=== PATIENT | male | born 1945 | race Caucasian/White ===

== ENCOUNTER → 2016-12-15 | Day surgery (SDC) | payer MEDICARE, OTHER ==
[~2016-12-15] VITALS: Ht 180.3 cm; Wt 91.6 kg
[~2016-12-15] MED LIST: AMLO2.5T PO; ASPI-999 PO; ATOR10TA PO; FNST5T PO; HYDR-3876 PO; LIDOCAINE 1% INJ 20 ML (XYLOCAINE) VIAL ONE; LISI10TA2 PO; LISI40TA PO; LORA10TA72 PO; LOVA20TA2 PO; NITR100C44 PO; OMEP20TA2 PO; TERA5CAP10 PO
--- NOTE | 2016-12-16 03:55 | OPERATIVE REPORT ---
DATE OF SERVICE: 12/15/2016 PROCEDURE: Implantable loop recorder implantation. PERFORMING PHYSICIAN: Dr. Santhosh Mcclellan. REFERRING PHYSICIAN: Dr. Vishnu Hamlin. INDICATION: Possible atrial fibrillation. PREOPERATIVE DIAGNOSIS: Possible atrial fibrillation. POSTOPERATIVE DIAGNOSIS: Possible atrial fibrillation, status post implantation of a Biotronik loop recorder. INDICATIONS: The patient is a 71-year-old gentleman who has been referred by Dr. Granado. He has history of palpitations and an event monitor done for 2 weeks showed episodes of irregular narrow complex tachycardia as well as brief episode of wide complex tachycardia. These may be brief episodes of atrial fibrillation/atrial tachycardia. Correction surveillance of atrial fibrillation is recommended, therefore an implantable loop recorder was recommended. PROCEDURE DETAILS: The patient is a 71-year-old gentleman. Informed consent was taken. All the risks and complications were discussed at length. The patient was draped and prepped in the usual sterile fashion. Local anesthesia was with lidocaine which was given in the substernal area close to the fourth intercostal space. A Biotronik loop monitor was implanted according to the protocol. The incision site was closed with 4 interrupted 2-0 silk sutures. Steri-Strips and Dermabond was placed at the end of the procedure. There were no complications and the patient tolerated the procedure well. The device was interrogated which showed an R-wave of 1.56 millivolts. The device placed is a BioMonitor 2-AF, reference number [id number], serial number [id number]. ANESTHESIA: Local anesthesia with lidocaine. COMPLICATIONS: None. CONTRAST/FLUOROSCOPY: None. CONCLUSIONS: 1. Successful implantation of Biotronik loop monitor for [facility] surveillance of atrial fibrillation. 2. No complication and the patient tolerated the procedure well. Job ID: [id number] DocumentID: [id number] Dictated Date: 12/15/2016 13:02:05 Vice President Network Date: 12/16/2016 03:54:08 Dictated By: SANTHOSH MCCLELLAN MD
== END ==
LOC: CATH 09:36
PROVIDERS: ATTEND Internal Medicine Interventional Cardiology
DX: R00.2 Palpitations (principal); R00.0 Tachycardia, unspecified; I10 Essential (primary) hypertension; I25.10 Atherosclerotic heart disease of native coronary artery without angina pectoris
CPT/HCPCS: 33282

== ENCOUNTER → 2017-12-28 | Outpatient (CLI) | payer MEDICARE, OTHER ==
[~2017-12-28] MED LIST changes: +APIX5TAB; +DILT180C; -LIDOCAINE 1% INJ 20 ML (XYLOCAINE) VIAL ONE
--- NOTE | 2017-12-28 13:33 | Diagnostic Imaging Report ---
Indication: Right arm pain Findings: AP and lateral views of the right humerus show no fracture or dislocation. Impression: Negative right humerus. Dictated by: Dictated on workstation # [id number]
== END ==
LOC: RAD 08:58
DX: M79.601 Pain in right arm (principal)
CPT/HCPCS: 73060

== ENCOUNTER 2018-02-03 06:24 | Emergency (ER) | payer MEDICARE, OTHER ==
[~2018-02-03] VITALS: Ht 180.3 cm; Wt 90.7 kg
[~2018-02-03 06:24] MED LIST changes: -APIX5TAB; -DILT180C
--- OUTSIDE RECORDS SUMMARY | 2018-02-03 06:32 | XMS REPORT | Clinical Summary ---
Author Author [facility] Organization [facility] Address Unknown Phone Unavailable Care Team Providers Care Gang Worker Name Role Phone Carrington Perze MD Unavailable Elgin Balderas PA-C Unavailable Unverified, Unverified PCP Unavailable Source Comments Some departments are not documenting in the electronic medical record. If you do not see the information that you expected, contact Release of Information in the Health Information Management department at [phone] for further assistance in locating additional records.[facility] Allergies Active Allergy Reactions Severity Noted Date Comments Ether NAUSEA AND VOMITING 11/13/2012 Current Medications Prescription Sig. Disp. Refills Start End Date Status Date atorvastatin (LIPITOR) 10 Take 10 mg by mouth Active mg tablet daily. metoprolol XL (TOPROL XL) Take 100 mg by mouth Active 100 mg tablet daily. omeprazole DR(+) Take 20 mg by mouth Active (PRILOSEC) 20 mg capsule daily. Active Problems Problem Noted Date Prostate cancer (HCC) 09/03/2012 Overview: PSA (Jul 2012)=3.2 ng/mL on Finasteride. PNBx (09/03/2012): cT1c; [place] 3+3=6, 1/6 cores, 5%; Dr. Meyer. (B) NS RALP -- 01/03/2013; Dr. Perez: final pathology pT2aNx [place] 3+3=6, negative margins L ast Assessment & Plan: 68M with prostate cancer s/p RALP 12/2012, final pathology was pT2aNx [place] 3+3=6. He is doing great. -Incontinence is improving and only requiring 1 pad/day. Mr. Winkler will continue his kegel exercises. -He was able to achieve a small erection but is not interested in any further treatment at this time. -PSA was not drawn today. He would like to follow-up with Dr. Meyer from now on and has an appointment within the next month. Advised to have a PSA at that time. -RTC PRN Family History Medical History Relation Name Comments Cancer Mother Hypertension Mother Relation Name Status Comments Mother Social History Tobacco Use Types Packs/Day Years Used Date Never Smoker Smokeless Tobacco: Never Used Alcohol Use Drinks/Week oz/Week Comments No Sex Assigned at Date Recorded Not on file Last Filed Vital Signs Vital Sign Reading Time Taken Blood Pressure 167/93 04/09/2013 11:18 AM CDT Pulse 56 04/09/2013 11:18 AM CDT Temperature 36.6 C (97.9 F) 01/04/2013 8:13 AM CDT Respiratory Rate - - Oxygen Saturation 96% 01/04/2013 10:55 AM CDT Inhaled Oxygen - - Concentration Weight 93.4 kg (206 lb) 04/09/2013 11:18 AM CDT Height 180.3 cm (5' 11") 04/09/2013 11:18 AM CDT Body Mass Index 28.73 04/09/2013 11:18 AM CDT Plan of Treatment Health Maintenance Due Date Last Done Comments PHYSICAL (COMPREHENSIVE) 02[birth year]01/1952 EXAM PERTUSSIS VACCINE 02/01/1955 TETANUS VACCINE 02/01/1961 COLORECTAL CANCER 02/01/1994 SCREENING SHINGLES VACCINE 2004 PNEUMONIA (PCV13/PPSV23) 02/01/2009 VACCINES (1 of 2 - PCV13) INFLUENZA VACCINE 05/21/2018 Results Not on filefrom Last 3 Months
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
--- OUTSIDE RECORDS SUMMARY | 2018-02-03 06:32 | XMS REPORT ---
Author Author MOISES FLORES [facility] Address [address] [place] [address] Care Team Providers Care Buckram Sewer Name Role Phone FLORESVELMAA Unavailable PROBLEMS Type Condition ICD9-CM Code [id number] Code Onset Dates Condition Status SNOMED Code Problem DTAP TEST V06.1 Active ALLERGIES No Information ENCOUNTERS Encounter Location Date Diagnosis [place] [address] [address] May, Encounter for immunization [place] [address] [address] Jul, Encounter for immunization [place] [address] [address] Jun, Encounter for immunization [place] [address] [address] Oct, [place] [address] [address] [place] [id number] [place] [phone] Oct, IMMUNIZATIONS Vaccine Route Administration Date Status FLUARIX QUAD (3 AND UP) 2016 IM Intramuscular May 24, 2017 Administered PCV 13 IM Intramuscular May 24, 2017 Administered SOCIAL HISTORY Never Assessed REASON FOR VISIT Flu shot/ pneumonia-SELENE Day PLAN OF CARE VITAL SIGNS MEDICATIONS Unknown Medications RESULTS No Results PROCEDURES Procedure Date Ordered Result Body Site FLUARIX QUAD (3 & UP)-GSK-2015 May 24, 2017 PCV 13 May 24, 2017 IMMUNIZATION ADMIN, EACH ADD (please include units) May 24, 2017 SINGLE IMMUNIZATION ADMIN May 24, 2017 INSTRUCTIONS MEDICATIONS ADMINISTERED No Known Medications
[2018-02-03] MEDS ORDERED: APIX5TAB (06:37)
[2018-02-03] MEDS ORDERED: DILT180C (06:37)
[2018-02-03] MEDS ORDERED: FUROSEMIDE 40 MG/4 ML INJ (LASIX) IVP ONE (06:45)
--- NOTE | 2018-02-03 07:47 | ED General ---
General Chief Complaint: Cardiac/General Problems Stated Complaint: BLOOD PRESSURE HIGH Nursing Triage Note: HIGH BLOOD PRESSURE Nursing Sepsis Screen: No Definite Risk Source of Information: Patient Exam Limitations: No Limitations History of Present Illness Date Seen by Provider: Feb 03, 2018 Time Seen by Provider: 07:47 Initial Comments Took his blood pressure and was concerned it was 167/99. Being treated by Dr. Wood for his hypertension; On Cardizem. Has had an aortic valve replacement. Had some tingling in his hands with his elevated BP. Allergies and Home Medications Allergies Coded Allergies: ether (Unverified Allergy, Unknown, vomiting, 10/21/14) Home Medications Lovastatin 20 Mg Tablet, 20 MG PO HS Prescribed by: SARIAH CRUZ on 12/29/15 1040 Patient Home Medication List Home Medication List Reviewed: Yes Review of Systems Constitutional: No chills, No fever EENTM: no symptoms reported Respiratory: no symptoms reported Cardiovascular: No chest pain, No palpitations Gastrointestinal: No abdominal pain, No vomiting Genitourinary: no symptoms reported Musculoskeletal: No back pain Skin: no symptoms reported Psychiatric/Neurological: No Symptoms Reported Hematologic/Lymphatic: No Symptoms Reported Immunological/Allergic: no symptoms reported Past Nqblxae-Vkbinj-Pnkbpx Hx Past Med/Social Hx: Reviewed Nursing Past Med/Soc Hx Patient Social History Alcohol Use: Denies Use Recreational Drug Use: No Smoking Status: Never a Smoker 2nd Hand Smoke Exposure: No Recent Foreign Travel: No Contact w/Someone Who Travel: No Recent Infectious Disease Expo: No Recent Hopitalizations: No Immunizations Up To Date Tetanus Booster (TDap): Unknown Date of Influenza Vaccine: May 21, 2014 Seasonal Allergies Seasonal Allergies: No Past Medical History Surgeries: Yes (AVR) CABG, Prostatectomy, Tonsillectomy Respiratory: No Cardiac: Yes High Cholesterol, Hypertension Neurological: No Reproductive Disorders: No Genitourinary: Yes Prostate Problems Gastrointestinal: No Musculoskeletal: No Endocrine: No HEENT: No Cancer: Yes Melanoma Psychosocial: No Integumentary: No Blood Disorders: No Physical Exam Vital Signs Vital Signs - First Documented 02/03/18 06:30 Temp 97.7 Pulse 58 Resp 18 B/P (MAP) 179/101 (127) Pulse Ox 97 O2 Delivery Room Air Capillary Refill : Less Than 3 Seconds General Appearance: No Apparent Distress, WD/WN, Anxious HEENT: Normal ENT Inspection Neck: Normal Inspection Respiratory: Normal Breath Sounds Cardiovascular: Regular Rate, Rhythm Gastrointestinal: Normal Bowel Sounds Extremity: Normal Capillary Refill, Normal Inspection Neurologic/Psychiatric: Alert, Oriented x3, No Motor/Sensory Deficits, Normal Mood/Affect Skin: Normal Color, Warm/Dry Procedures/Interventions Suture Size: 5-0 Progress/Results/Core Measures Suspected Sepsis Recent Fever Within 48 Hours: No Infection Criteria Present: None New/Unexplained Altered Menta: No Sepsis Screen: No Definite Risk SIRS Temperature:97.7 Pulse: 58 Respiratory Rate: 18 Blood Pressure 179 /101 Mean: 127 Results/Orders My Orders Orders - JAYCE VILLAGOMEZ MD Iv Heplock-Insert (Order) (02/03/18 06:43) Furosemide Injection (Lasix Injection) (02/03/18 06:45) Medications Given in ED Current Medications Medications Dose Ordered Sig/Daniel Route Start Time Stop Time Status Last Admin Dose Admin Furosemide 20 mg ONCE ONCE IVP 02/03/18 06:45 02/03/18 06:46 DC 02/03/18 06:50 20 MG Vital Signs/I&O 02/03/18 06:30 Temp 97.7 Pulse 58 Resp 18 B/P (MAP) 179/101 (127) Pulse Ox 97 O2 Delivery Room Air Capillary Refill : Less Than 3 Seconds Blood Pressure Mean: 127 Progress Note : Time: 07:52 Progress Note Patient given 20 mg Lasix IV. After an hour the patient's BP was 140/85 and patient was ready to go home. Advised he follow up closely with Dr. Wood and continue his current BP meds as prescribed. Departure Impression Primary Impression: Hypertelorism disorder Disposition: Condition: Improved Departure-Patient Inst. Decision time for Depature: 07:55 Referrals: JOSE WOOD MD (PCP) Primary Care Physician Patient Instructions: High Blood Pressure (DC) Add. Discharge Instructions: Continue blood pressure meds as prescribed. Close follow up with Dr. Wood. Come back if any problems. All discharge instructions reviewed with patient and/or family. Voiced understanding. JAYCE VILLAGOMEZ MD Feb 03, 2018 07:47
[2018-02-03 08:02] VITALS: BP 143/85
== END 2018-02-03 08:02 | disposition home or self-care (01) ==
LOC: EDUNIT# 06:24 → ER 06:28
DX: Q75.2 Hypertelorism (principal); E78.00 Pure hypercholesterolemia, unspecified; I10 Essential (primary) hypertension; Z85.820 Personal history of malignant melanoma of skin; Z90.89 Acquired absence of other organs; Z95.5 Presence of coronary angioplasty implant and graft; Z90.79 Acquired absence of other genital organ(s); Z95.2 Presence of prosthetic heart valve; Z88.4 Allergy status to anesthetic agent
CPT/HCPCS: 96374

== ENCOUNTER → 2018-02-09 | Outpatient (CLI) | payer MEDICARE, OTHER ==
[~2018-02-09] MED LIST changes: +APIX5TAB; +DILT180C; +GADOBUTROL 10 MMOL/10 ML (GADAVIST) VIAL IV ONE
--- NOTE | 2018-02-09 15:17 | Diagnostic Imaging Report ---
PROCEDURE: MR imaging of the brain with and without contrast. TECHNIQUE: Multiplanar, multisequence MR imaging of the brain was performed with and without contrast. INDICATION: Memory difficulty. COMPARISON: No prior MRI brain study is available for comparison. FINDINGS: Ventricular size and sulcal pattern are appropriate for the patient's age. There is fairly extensive periventricular and subcortical white matter signal abnormalities noted, likely on the basis of chronic microvascular ischemia. No diffusion restriction is seen to suggest acute ischemia. The normal expected flow-voids within the carotid siphons are seen. No acute intra-axial or extra-axial hemorrhage is detected. The corpus callosum is unremarkable. The sella and parasellar structures are unremarkable. No abnormal enhancement is seen following contrast administration. IMPRESSION: Changes of chronic microvascular ischemia. MRI brain is otherwise unremarkable. No acute features detected. Dictated by: Dictated on workstation # [id number]
== END ==
LOC: RAD 11:27
DX: I67.82 Cerebral ischemia (principal)
CPT/HCPCS: 70553

== ENCOUNTER → 2018-04-24 | Outpatient (CLI) | payer MEDICARE, OTHER ==
[~2018-04-24] MED LIST changes: -GADOBUTROL 10 MMOL/10 ML (GADAVIST) VIAL IV ONE
== END ==
LOC: CARD 09:27
PROVIDERS: ATTEND Nurse Practitioner Family
DX: I08.1 Rheumatic disorders of both mitral and tricuspid valves (principal); Z95.2 Presence of prosthetic heart valve
CPT/HCPCS: 93306

== ENCOUNTER 2019-05-22 12:33 | Outpatient (RCR) | payer MEDICARE, OTHER | END 2019-07-04 10:33 | disposition home or self-care (01) | PROVIDERS: ATTEND Podiatrist | DX: M76.822 Posterior tibial tendinitis, left leg (principal); R29.898 Other symptoms and signs involving the musculoskeletal system ==

== ENCOUNTER → 2020-05-12 | Outpatient (CLI) | payer MEDICARE, OTHER ==
[~2020-05-12] MED LIST changes: -DILT180C; +DILT180C85
== END ==
LOC: CARD 10:37
PROVIDERS: ATTEND Nurse Practitioner Family
DX: I48.91 Unspecified atrial fibrillation (principal); I10 Essential (primary) hypertension; Q25.3 Supravalvular aortic stenosis; I77.89 Other specified disorders of arteries and arterioles
CPT/HCPCS: 93306

== ENCOUNTER 2021-08-06 05:26 | Outpatient (RCR) | payer MEDICARE, OTHER ==
[~2021-08-06] VITALS: Ht 180.3 cm; Wt 89.5 kg
[~2021-08-06 05:26] MED LIST changes: +DOXA1TAB2 PO; -LISI40TA PO; +LISI40TA9 PO; +MULT-593 PO; +OMEP-401 PO; +RIVA1.5C30 PO; +SERT-413 PO
== END 2021-08-06 11:48 | disposition home or self-care (01) ==
LOC: PREOP 05:26
PROVIDERS: ATTEND Surgery
DX: Z01.812 Encounter for preprocedural laboratory examination (principal); Z12.11 Encounter for screening for malignant neoplasm of colon; K21.9 Gastro-esophageal reflux disease without esophagitis; Z20.822 Contact with and (suspected) exposure to COVID-19; Z86.010 Personal history of colon polyps
CPT/HCPCS: 87635

== ENCOUNTER 2021-08-10 07:23 | Day surgery (SDC) | payer MEDICARE, OTHER ==
[2021-08-10] VITALS (7 sets, daily range): BP systolic 132–155; BP diastolic 70–100
[~2021-08-10] VITALS: Ht 180.3 cm; Wt 89.5 kg
[2021-08-10] MEDS ORDERED: MIDAZOLAM 2 MG/2 ML (VERSED) VIAL ONE (07:28)
[2021-08-10] MEDS ORDERED: PROPOFOL INJECTION 50 ML IV ONE ×2 (07:28→09:15)
[2021-08-10] MEDS ORDERED: LACTATED RINGERS 1,000 ML IV ONE (07:30)
[2021-08-10] MEDS ORDERED: LACTATED RINGERS 1,000 ML IV STA (07:39)
[2021-08-10] MEDS ORDERED: HURRICAINE EXT TUBE (BENZOCAINE) XX PRN (07:45)
--- NOTE | 2021-08-10 09:25 | Discharge Inst-Simple/Standard ---
Discharge Inst-Standard Patient Instructions/Follow Up Plan of Care/Instructions/FU: Chong 2 weeks. Hold eliquis 2 more days then restart. Activity as Tolerated: Yes Discharge Diet: Regular Diet CIARA SAENZ DO Aug 10, 2021 09:25
--- NOTE | 2021-08-10 09:33 | Progress Note-Post Operative ---
Post-Operative Progess Note Surgeon (s)/Lens Molder (s) Surgeon CIARA SAENZ DO Lens Molder: na Pre-Operative Diagnosis hx polyps, gerd Post-Operative Diagnosis small hiatal hernia, slight gastritis colon polyps, diverticulosis Procedure & Operative Findings Date of Procedure 08/10/21 Procedure Performed/Findings egd c biopsies colonoscopy c cold biopsies of cecal polyp (flat), snare polypectomy of hepatic flexure and hot bx polypectomy sigmoid colon. Anesthesia Type per management analyst Estimated Blood Loss Estimated blood loss (mL): none Specimens/Packing Specimens Removed antrum, body, ge , colon polyps. CIARA SAENZ DO Aug 10, 2021 09:33
--- NOTE | 2021-08-10 14:11 | OPERATIVE REPORT ---
DATE OF SERVICE: 08/10/2021 PREOPERATIVE DIAGNOSIS: History of colon polyps, gastrointestinal reflux disease. POSTOPERATIVE DIAGNOSES: Small hiatal hernia, slight gastritis, colon polyps, diverticulosis. PROCEDURE: EGD with biopsies, colonoscopy with cold biopsies of the cecal polyp, which was flat, snare polypectomy of hepatic flexure and hot biopsy polypectomy of sigmoid colon. SURGEON: Ciara Schwarz DO ANESTHESIA: Per RELATIONSHIP COUNSELOR. ESTIMATED BLOOD LOSS: None. COMPLICATIONS: None. INDICATIONS: The patient is a 76-year-old male with GERD and history of colon polyps. He understands risks and benefits of procedure and wishes to proceed. Consent was signed in the chart. DESCRIPTION OF PROCEDURE: The patient was taken to the endoscopy suite, placed in left lateral recumbent position. Timeout was performed. Scope was inserted in mouth, down the esophagus, stomach and into the duodenum without difficulty. There were no polyps, masses or ulcerations within the duodenum. Scope was slowly retracted back into the stomach where it was further insufflated. Slight gastritis appearance. Biopsy of the antrum and body were obtained. No polyps, masses or ulcerations. Scope was retroflexed noting a small hiatal hernia. Scope was returned to its normal position, slowly withdrawn to distal esophagus. Biopsy of the GE junction was obtained. No polyps, masses or ulcerations. Scope was slowly retracted back until completely removed. Digital rectal exam was performed noting no palpable polyps, masses or ulcerations. The scope was inserted in the rectum, advanced all the way to cecum with minimal difficulty. Prep was adequate with irrigation and suction. The cecum, small flat polyp through approximately a third of the cecum was present. Cold biopsies were obtained of this area. Scope was then slowly retracted back. At the hepatic flexure, small polyp was present, which snare polypectomy was performed and was obtained for specimen. Scope was then continuously retracted back. No polyps, masses or ulcerations within the transverse and descending colon. In the sigmoid colon, a moderate amount of diverticulosis present. Also, small polyp, which hot biopsy polypectomy was performed. Scope was then continuously retracted back into the rectum where it was also retroflexed noting no other pathology. Scope was returned to its normal position, slowly withdrawn until completely removed. The patient tolerated procedure well without any complications, taken to recovery room in stable condition. RECOMMENDATIONS: The patient will await biopsies on the upper GI and make further recommendations. On the colon, we would recommend due to a larger flat polyp, await biopsy results. We would consider doing right colon resection. Further recommendations pending results. The patient's age 76 with a likely repeat colonoscopy in 5 years depending upon pathology, but due to age. We would have to look at the benefits versus risk. Job ID: [id number] DocumentID: [id number] Dictated Date: 08/10/2021 09:33:30 Curing Press Operator Date: 08/10/2021 14:09:35 Dictated By: CIARA SCHWARZ DO
--- NOTE | 2021-08-10 14:51 | Anesthesia-General Post-Op ---
MAC Patient Condition Mental Status/LOC: Same as Preop Cardiovascular: Satisfactory Nausea/Vomiting: Absent Respiratory: Satisfactory Pain: Controlled Complications: Absent Post Op Complications Complications None Follow Up Care/Instructions Patient Instructions None needed. Anesthesiology Discharge Order Discharge Order Patient is doing well, no complaints, stable vital signs, no apparent adverse anesthesia problems. No complications reported per nursing. MAURO SHEN CRNA Aug 10, 2021 14:51
== END 2021-08-10 10:15 | disposition home or self-care (01) ==
LOC: ENDO 07:23
PROVIDERS: ATTEND Surgery
DX: Z12.11 Encounter for screening for malignant neoplasm of colon (principal); D12.0 Benign neoplasm of cecum; D12.3 Benign neoplasm of transverse colon; I25.10 Atherosclerotic heart disease of native coronary artery without angina pectoris; I10 Essential (primary) hypertension; K21.9 Gastro-esophageal reflux disease without esophagitis; K44.9 Diaphragmatic hernia without obstruction or gangrene; K57.30 Diverticulosis of large intestine without perforation or abscess without bleeding; Z79.899 Other long term (current) drug therapy; Z79.01 Long term (current) use of anticoagulants

== ENCOUNTER 2021-09-02 05:32 | Outpatient (CLI) | payer MEDICARE, OTHER ==
[~2021-09-02] VITALS: Ht 180 cm; Wt 89.5 kg
== END 2021-09-03 10:55 | disposition home or self-care (01) ==
LOC: PREOP 05:32
PROVIDERS: ATTEND Surgery
DX: Z01.818 Encounter for other preprocedural examination (principal)

== ENCOUNTER 2021-09-09 05:54 | Inpatient (IN) | payer MEDICARE, OTHER ==
[2021-09-09] VITALS (13 sets, daily range): BP systolic 124–171; BP diastolic 67–103
[~2021-09-09] VITALS: Ht 180 cm; Wt 89.5 kg
[~2021-09-09 05:54] MED LIST changes: -APIX5TAB; +APIX5TAB PO; -DILT180C85; +DILT180C85 PO
[2021-09-09] MEDS ORDERED: ceFAZolin 2 GM IV Premixed 50 ML IV ONE (06:15)
[2021-09-09] MEDS ORDERED: metroNIDAZOLE 500MG/100ML IVPB 100 ML IV ONE (06:15)
[2021-09-09] MEDS: LACTATED RINGERS 1,000 ML IV PRN ×2 (06:49→08:27)
[2021-09-09] MEDS ORDERED: fentaNYL INJ 100 MCG/2 ML AMP ONE (07:04)
[2021-09-09] MEDS ORDERED: ONDANSETRON 4 MG/2 ML (SDV) Z0FRAN ONE (07:04)
[2021-09-09] MEDS ORDERED: proPOfol 200 MG/20 ML (DIPRIVAN) VIAL IV ONE (07:04)
[2021-09-09] MEDS ORDERED: LIDOCAINE PF 2% 5 ML (XYLOCAINE) VIAL ONE (07:04)
[2021-09-09] MEDS ORDERED: SEVOFLURANE (ULTANE) 15 ML INHAL SOLN ONE ×2 (07:04→09:21)
[2021-09-09] MEDS ORDERED: MIDAZOLAM 2 MG/2 ML (VERSED) VIAL ONE (07:05)
[2021-09-09] MEDS ORDERED: LIDOCAINE/EPI 1%-1:200,000 (XYLOCAINE) 30 ML VIAL ONE (07:19)
--- NOTE | 2021-09-09 08:00 | Progress Note-Pre Operative ---
Pre-Operative Progress Note H&P Reviewed The H&P was reviewed, patient examined and no changes noted. Date Seen by Provider: Sep 09, 2021 Time Seen by Provider: 07:45 Date H&P Reviewed: Sep 09, 2021 Time H&P Reviewed: 07:45 Pre-Operative Diagnosis: tubular adenoma cecum CIARA SAENZ DO Sep 09, 2021 08:00
[2021-09-09] MEDS ORDERED: SUGAMMADEX 500 MG/5 ML VIAL (BRIDION) IV ONE (09:16)
[2021-09-09] MEDS ORDERED: GLYCOPYRROLATE 0.2 MG/ML (ROBINUL) 2 ML VIAL ONE (09:21)
[2021-09-09] MEDS ORDERED: ONDANSETRON 4 MG/2 ML (SDV) Z0FRAN IVP PRN ×2 (09:30→09:45)
[2021-09-09] MEDS ORDERED: morphine INJ 4 MG/ML 1 ML (VIAL/SYRINGE) IVP PRN (09:30)
--- NOTE | 2021-09-09 09:36 | Progress Note-Post Operative ---
Post-Operative Progess Note Surgeon (s)/Packer Fuser (s) Surgeon CIARA SAEZN DO Packer Fuser: Dr. Graff Pre-Operative Diagnosis tubular adenoma cecum Post-Operative Diagnosis same Procedure & Operative Findings Date of Procedure 09/09/21 Procedure Performed/Findings lap hand assisted right colon resection Anesthesia Type general Estimated Blood Loss Estimated blood loss (mL): minimal Specimens/Packing Specimens Removed right colon CIARA SAENZ DO Sep 09, 2021 09:36
[2021-09-09] MEDS ORDERED: morphine INJ 10 MG/ML 1ML (SYR OR VIAL) IVP ONE (09:45)
[2021-09-09] MEDS ORDERED: MEPERIDINE (DEMEROL) INJ 50 MG/ML IVP ONE (09:45)
[2021-09-09] MEDS ORDERED: BUPIVACAINE 0.5% 30 ML (SENSORCAINE) VIAL ONE (09:45)
[2021-09-09] MEDS ORDERED: fentaNYL INJ 100 MCG/2 ML AMP IVP ONE (09:45)
[2021-09-09] MEDS ORDERED: morphine INJ 10 MG/ML 1ML (SYR OR VIAL) ONE (09:59)
[2021-09-09] MEDS ORDERED: LOVA20TA2 PO (11:47)
[2021-09-09] MEDS: LACTATED RINGERS 1,000 ML IV SCH ×3 (12:12→21:40)
[2021-09-09] MEDS: HYDROcodone/APAP 5 MG/325 MG (LORTAB) TAB PO PRN (12:13)
[2021-09-09] MEDS ORDERED: RT-ALBUTEROL SULF 2.5 MG/3 ML PRE-MIX VIAL INH PRN (14:45)
[2021-09-09] MEDS: ceFAZolin 2 GM IV Premixed 50 ML IV SCH ×2 (15:47→23:17)
[2021-09-09] MEDS: metroNIDAZOLE 500MG/100ML IVPB 100 ML IV SCH (16:55)
--- NOTE | 2021-09-09 22:43 | OPERATIVE REPORT ---
DATE OF SERVICE: 09/09/2021 PREOPERATIVE DIAGNOSIS: Tubular adenoma of cecum. POSTOPERATIVE DIAGNOSIS: Tubular adenoma of cecum. PROCEDURE: Laparoscopic hand-assisted right colon resection. SURGEON: Tarik Schwarz DO OCCUPATIONAL THERAPY ASSISTANT: Dr. Graff, assisted in retraction, dissection and closure. ANESTHESIA: General. ESTIMATED BLOOD LOSS: Minimal. COMPLICATIONS: None. INDICATIONS: The patient is a 76-year-old male who was found to have a large tubular adenoma of the cecum. This was unable to be removed endoscopically. The patient understands risks and benefits and wishes to proceed with procedure. Consent was signed in the chart. DESCRIPTION OF PROCEDURE: The patient was taken to the operating suite, was prepped and draped in sterile fashion. Surgical pause was performed. Local anesthetic was infiltrated at the midline. A 15-blade scalpel was used to make a skin incision for a hand port just around the umbilicus. Cautery was used to dissect down through the subcutaneous fat to the fascia, which was then scored and opened. A 12 mm trocar was placed under direct visualization through the incision in the epigastric area. Hand port was then placed at the midline and pneumoperitoneum was achieved. Under direct visualization of the laparoscope, a 5 mm trocar was placed in the suprapubic region. The right colon was identified. The white line of Toldt on the right side was divided using cautery and blunt dissection. There were some adhesions on the right side from previous appendectomy, which were divided. The colon was brought out through the midline incision. A rnji-hs-croy anastomosis was made in a [place] two-step fashion removing a portion of the right colon and small bowel. A LigaSure was used to divide the mesentery. A crotch stitch was placed using 3-0 Vicryl for the anastomosis. The mesentery was then closed using 3-0 Vicryl in a running fashion. The abdomen was then irrigated with copious amounts of irrigation and suction. The fascia was then closed using 1-0 looped PDS in a running fashion. The abdomen was then reinspected. No other pathology noted. The abdomen was then washed and dried. The skin was then closed using betty. The area was washed and dried and sterile bandages were applied. The patient tolerated procedure well without any complications. He was taken to recovery room in stable condition. Job ID: [id number] DocumentID: [id number] Dictated Date: 09/09/2021 19:16:13 Acquisitions Logistics Analyst Date: 09/09/2021 22:42:28 Dictated By: DO PEDRO NAVARRO
[2021-09-10] VITALS (7 sets, daily range): BP systolic 135–180; BP diastolic 64–92
[2021-09-10] MEDS: metroNIDAZOLE 500MG/100ML IVPB 100 ML IV SCH (01:02)
[2021-09-10] MEDS: HYDROcodone/APAP 5 MG/325 MG (LORTAB) TAB PO PRN (05:43)
[2021-09-10 06:19] LABS: HEMATOCRIT 37 % (40-54); HEMOGLOBIN 12.3 g/dL (13.3-17.7); MEAN CORPUSCULAR HEMOGLOBIN 31 pg (25-34); MEAN CORPUSCULAR HGB CONC 33 g/dL (32-36); MEAN CORPUSCULAR VOLUME 93 fL (80-99); MEAN PLATELET VOLUME 9.9 fL (9.0-12.2); PLATELET COUNT 175 10^3/uL (130-400); WHITE BLOOD COUNT 10.5 10^3/uL (4.3-11.0)
[2021-09-10 06:40] LABS: CALCIUM 8.1 MG/DL (8.5-10.1); CREATININE SERUM 0.8 MG/DL (0.60-1.30); POTASSIUM 3.3 MMOL/L (3.6-5.0)
[2021-09-10] MEDS: LACTATED RINGERS 1,000 ML IV SCH ×2 (06:58→15:04)
--- NOTE | 2021-09-10 07:58 | Consultation - Hospitalist ---
HPI History of Present Illness: HPI/Chief Complaint Christiano Jiang is a 76 year old male with PMH AFib, HLD, GERD, depression, who presented for a partial colon resection due to tubular adenoma. Upon my exam, he is doing well. He isn't having any pain. He is going to go for a walk. He has been tolerating his clear liquids. He denies abdominal pain, nausea, and vomiting. He does not have his incentive spirometer yet. He has no other complaints or concerns. Source: patient Exam Limitations: no limitations Date Seen 09/09/21 Attending Physician Tarik Schwarz DO PCP Marc Dowell MD Referring Physician Date of Admission Sep 09, 2021 at 05:54 Home Medications & Allergies Home Medications Reviewed patient Home Medication Reconciliation performed by pharmacy medication reconciliations museum technician and/or nursing. Patients Allergies have been reviewed. Allergies Allergies Coded Allergies atenolol (Unverified Allergy, Unknown, 09/03/21) ether (Verified Allergy, Unknown, vomiting, 09/03/21) Past Kggnlqx-Cabuvf-Tvcpgj Hx Patient Social History Tobacco Use?: No Substance use?: No Alcohol Use?: No Pt feels they are or have been: No Immunizations Up To Date Date of Influenza Vaccine: Jun 04, 2021 First/Initial COVID19 Vaccinat: AUGUST 2020 Second COVID19 Vaccination Tj: SEPTEMBER 2020 Tetanus Booster (TDap): Unknown Seasonal Allergies Seasonal Allergies: No Current Status Communicates: Verbally Primary Language: Romanian Preferred Spoken Language: Romanian Is interpretation needed?: No Past Medical History Surgeries: Prostatectomy, Tonsillectomy Currently Using CPAP: No Currently Using BIPAP: No Atrial Fibrillation, High Cholesterol, Hypertension, Valvular Heart Disease Prostate Problems Prostate, Melanoma What Type of Treatment Did You: Surgical Intervention Blood Disorders: No Family Medical History No Pertinent Family Hx Review of Systems Constitutional: no symptoms reported EENTM: no symptoms reported Respiratory: no symptoms reported Cardiovascular: no symptoms reported Gastrointestinal: no symptoms reported Genitourinary: no symptoms reported Musculoskeletal: no symptoms reported Skin: no symptoms reported Psychiatric/Neurological: No Symptoms Reported Physical Exam Physical Exam Vital Signs Vital Signs - First Documented 09/09/21 06:25 Temp 36.5 Pulse 64 Resp 18 B/P (MAP) 124/103 (110) Pulse Ox 98 O2 Delivery Room Air Capillary Refill : Less Than 3 Seconds Height, Weight, BMI Height: 5'11.00" Weight: 200lbs. 0.0oz. 90.507371as; 27.62 BMI Method:Stated General Appearance: No Apparent Distress, WD/WN HEENT: PERRL/EOMI, Pharynx Normal Neck: Normal Inspection, Supple Respiratory: Lungs Clear, Normal Breath Sounds, No Respiratory Distress Cardiovascular: Regular Rate, Rhythm, No Edema, No Murmur Gastrointestinal: Non Tender, Soft, Abnormal Bowel Sounds (hypoactive) Extremity: Normal Inspection, Non Tender, No Pedal Edema Neurologic/Psychiatric: Alert, Oriented x3, No Motor/Sensory Deficits, Normal Mood/Affect Skin: Normal Color, Warm/Dry Results Results/Procedures Labs Laboratory Tests 09/10/21 06:00 Patient resulted labs reviewed. Assessment/Plan Assessment and Plan Assess & Plan/Chief Complaint Tubular adenoma s/p partial colectomy Surgery primary Ambulation Clear liquids Pain regimen Incentive spirometry HTN HLD Depression BPH AFib Continue home meds Resume blood thinner when ok with surgery Diagnosis/Problems Diagnosis/Problems (1) Tubular adenoma Status: Acute (2) S/P partial colectomy Status: Acute (3) HTN (hypertension) Status: Chronic (4) Afib Status: Chronic (5) BPH (benign prostatic hyperplasia) Status: Chronic ARVIN VELASCO MD Sep 10, 2021 07:57
[2021-09-10] MEDS ORDERED: PANTOPRAZOLE 20 MG TABLET (PROTONIX) PO PRN (08:00)
--- NOTE | 2021-09-10 08:17 | Progress Note - Surgery ---
KASIA ATKINSON 09/10/21 0817: Subjective Date Seen by a Provider: Sep 10, 2021 Time Seen by a Provider: 07:45 Subjective/Events-last exam Mr. Jiang is 1 day s/p laparoscopic hand assisted right colon resection d/t tubular adenoma of the cecum. He reports that he is doing very well this morning and when I spoke with him he was up and walking around his room. He says his pain is a 5/10 and is localized to his incisions. He reports having trouble urinating last night but having an easier time today. He denies flatus or a bowel movement. He denies nausea, vomiting, or fever. He is tolerating clear liquids well. He asked me when he could take his diltiazem again and wanted to r estart that if he could. Review of Systems General: No Chills, No Fatigue HEENT: No Head Aches, No Visual Changes Pulmonary: No Dyspnea, No Cough Cardiovascular: No: Chest Pain, Palpitations Gastrointestinal: No: Nausea, Vomiting, Abdominal Pain Genitourinary: No Dysuria, No Incontinence; Other (Difficulty urinating yesterday) Neurological: No: Weakness, Confusion Objective Exam Vital Signs Date Time Temp Pulse Resp B/P (MAP) Pulse Ox O2 Delivery O2 Flow Rate FiO2 09/10/21 04:00 37.8 80 17 135/70 (91) 92 Room Air 09/10/21 00:00 37.4 77 18 136/64 (88) 98 Room Air 09/09/21 20:00 37.8 75 18 163/80 (107) 97 Room Air 09/09/21 19:30 92 Room Air 09/09/21 16:00 37.6 69 18 168/84 (112) 94 Room Air 09/09/21 14:34 36.8 70 94 09/09/21 12:42 36.8 70 16 138/75 (96) 94 Room Air 09/09/21 10:40 Room Air 09/09/21 10:40 36.3 20 144/79 (100) 96 Room Air 09/09/21 10:40 Room Air 09/09/21 10:38 36.1 60 16 144/67 (92) 93 Room Air 09/09/21 10:30 Room Air 09/09/21 10:30 20 144/79 (100) 93 Room Air 09/09/21 10:20 20 144/86 (105) 98 OxyMask 5 09/09/21 10:15 OxyMask 4 09/09/21 10:10 20 150/83 (105) 96 OxyMask 4 09/09/21 10:00 20 158/71 (100) 100 OxyMask 6 09/09/21 10:00 OxyMask 4 09/09/21 09:50 20 158/95 (116) 100 OxyMask 6 09/09/21 09:45 OxyMask 6 09/09/21 09:40 OxyMask 6 09/09/21 09:40 36.3 20 171/90 (117) 92 OxyMask 6 I & O 09/10/21 07:00 Intake Total 5378 ml Output Total 1750 ml Balance 3628 ml Capillary Refill : Less Than 3 Seconds General Appearance: No Apparent Distress, WD/WN HEENT: PERRL/EOMI; No Scleral Icterus (L), No Scleral Icterus (R) Neck: Normal Inspection, Non Tender; No Lymphadenopathy (L), No Lymphadenopathy (R) Respiratory: Chest Non Tender, Lungs Clear, Normal Breath Sounds, No Accessory Muscle Use, No Respiratory Distress Cardiovascular: Regular Rate, Rhythm, No Edema, No Murmur Peripheral Pulses: 2+ Radial Pulses (R), 2+ Radial Pulses (L) Gastrointestinal: normal bowel sounds, soft, distended (Mild distension), tenderness (Tender over incisions, mild tenderness) Extremity: Normal Capillary Refill, Normal Inspection, Non Tender, No Pedal Edema Neurologic/Psychiatric: Alert, Oriented x3, No Motor/Sensory Deficits, Normal Mood/Affect Skin: Normal Color, Warm/Dry, Other (Dressings over anterior abdomen midline) Lymphatic: No Adenopathy (Head and neck) Results Lab Laboratory Tests 09/10/21 06:00: White Blood Count 10.5, Red Blood Count 3.94L, Hemoglobin 12.3L, Hematocrit 37L, Mean Corpuscular Volume 93, Mean Corpuscular Hemoglobin 31, Mean Corpuscular Hemoglobin Concent 33, Red Cell Distribution Width 13.2, Platelet Count 175, Mean Platelet Volume 9.9, Sodium Level 138, Potassium Level 3.3L, Chloride Level 106, Carbon Dioxide Level 22, Anion Gap 10, Blood Urea Nitrogen 10, Creatinine 0.80, Estimat Glomerular Filtration Rate 91, BUN/Creatinine Ratio 13, Glucose Level 105, Calcium Level 8.1L Assessment/Plan Assessment/Plan Assessment/Plan Assessment: s/p Right colon resection - 2/2 tubular adenoma of cecum AFib HLD GERD Plan: Continue clear liquids Continue ambulation Wound dressing change Pain control as needed Start ICS Possible d/c today depending on status of bowels. Pending a bowel movement possible d/c today or tomorrow. Monitor. CIARA SCHWARZ DO 09/10/21 1535: Subjective Subjective/Events-last exam Patient feeling good. His pain is controlled. Patient rates pain a 5 out of 10 over the midline incision. Patient urinating okay today. No flatus or bowel movement at this time. Patient is tolerating clear liquids. Patient denies nausea vomiting fever sweats chills shortness of breath or chest pain at this time. Objective Exam General Appearance: No Apparent Distress, WD/WN HEENT: PERRL/EOMI Neck: Normal Inspection, Non Tender Respiratory: Chest Non Tender, No Accessory Muscle Use, No Respiratory Distress Cardiovascular: Regular Rate, Rhythm, No JVD Gastrointestinal: non tender, soft, distended (minimal), tenderness (Tender over incisions, mild tenderness, c/d/i) Extremity: Normal Capillary Refill, Normal Inspection Neurologic/Psychiatric: Alert, Oriented x3 Skin: Normal Color, Warm/Dry Lymphatic: No Adenopathy (Head and neck) Assessment/Plan Assessment/Plan Assessment/Plan s/p lap hand assisted right colon resection. clear liquids incentive spiromter ambulating halls well. if regains bowel function and pain controlled with oral pain meds home soon Supervisory-Addendum Brief Verification & Attestation Participated in pt care: history, MDM, physical Personally performed: exam, history, MDM, supervision of care Care discussed with: Medical Student Procedures: n/a Results interpretation: Verified all documentation Verification and Attestation of Medical Student E/M Service A medical student performed and documented this service in my presence. I reviewed and verified all information documented by the medical student and made modifications to such information, when appropriate. I personally performed the physical exam and medical decision making. Ciara Schwarz, Sep 10, 2021,15:35 KASIA ATKINSON Sep 10, 2021 08:17 CIARA SCHWARZ DO Sep 10, 2021 15:35
[2021-09-10] MEDS: RIVASTIGMINE 1.5 MG (EXELON) CAP PO SCH ×2 (08:27→20:26)
[2021-09-10] MEDS: SERTRALINE 50 MG (ZOLOFT) TABLET PO SCH (08:28)
--- NOTE | 2021-09-10 12:56 | Anesthesia-General Post-Op ---
General Patient Condition Mental Status/LOC: Same as Preop Cardiovascular: Satisfactory Nausea/Vomiting: Absent Respiratory: Satisfactory Pain: Controlled Complications: Absent Post Op Complications Complications None Follow Up Care/Instructions Patient Instructions None needed. Anesthesia/Patient Condition Patient Condition Patient is doing well, no complaints, stable vital signs, no apparent adverse anesthesia problems. No complications reported per nursing. CORKY COLE CRNA Sep 10, 2021 12:56
[2021-09-10] MEDS ORDERED: DOCU-143 PO (15:36)
[2021-09-10] MEDS ORDERED: ACHD5005 PO (15:36)
--- NOTE | 2021-09-10 15:39 | Discharge Inst-Simple/Standard ---
Discharge Inst-Standard Discharge Medications New, Converted or Re-Newed RX: Transmitted to Pharmacy Patient Instructions/Follow Up Plan of Care/Instructions/FU: 2 weeks Chong Activity as Tolerated: No Discharge Diet: Regular Diet Other Inst to Patient Follow up Appt: Make appointment for 2 week Chong. Instructions: No lifting greater than 10 pounds. No strenuous activity. May shower in 24 hours, no tub bath or soaking. Use incentive spirometer at home as directed. No Smoking Skin/Wound Care: Keep area clean and dry. Symptoms to Report: Appetite Changes, Extremity Discoloration, Numbness/Tingling, Swelling Increased, Bleeding Excessive, Eyesight Changes, Pain Increased, Urine Color Change, Constipation(Persistent), Fever over 101 degree F, Pain/Pressure in chest, Urinating Difficulty, Cough Up/Vomit Blood, Heart Beat Irreg/Pounding, Pain/Pressure in jaw, Vaginal Bleeding Increase, Cramps in feet or legs, Light headedness, Pain/Pressure in shoulder, Diarrhea(Persistent), Memory Changes Suddenly, Questions/Concerns, Weight gain consecutive days, Dizziness/Fainting, Nausea/Vomiting, Shortness of Breath, Weight gain over 2 pounds If questions or concerns contact your physician Or seek help at emergency department. CIARA SAENZ DO Sep 10, 2021 15:39
[2021-09-10] MEDS ORDERED: doxAzosin 1 MG (CARDURA) TAB PO SCH (21:00)
[2021-09-10] MEDS ORDERED: SIMvastatin 10 MG (ZOCOR) TAB PO SCH (21:00)
[2021-09-10] MEDS ORDERED: APIXABAN 5 MG (ELIQUIS) TABLET PO SCH (21:00)
[2021-09-11] MEDS: LACTATED RINGERS 1,000 ML IV SCH ×2 (01:39→09:38)
[2021-09-11 03:54] VITALS: BP 132/61
[2021-09-11 07:24] VITALS: BP 186/98
[2021-09-11] MEDS: RIVASTIGMINE 1.5 MG (EXELON) CAP PO SCH (08:50)
[2021-09-11] MEDS: SERTRALINE 50 MG (ZOLOFT) TABLET PO SCH (08:50)
[2021-09-11] MEDS ORDERED: APIXABAN 5 MG (ELIQUIS) TABLET PO SCH (09:00)
--- NOTE | 2021-09-11 11:25 | Progress Note ---
Subjective Date Seen by a Provider: Sep 11, 2021 Time Seen by a Provider: 10:30 Subjective/Events-last exam Patient seen with Dr. Mir. Patient reports doing well. Reports has been walking the [place]. Had liquid BM. Reports minimal abdominal discomfort. No nausea or vomiting. Tolerating diet. Objective Exam Vital Signs Date Time Temp Pulse Resp B/P (MAP) Pulse Ox O2 Delivery O2 Flow Rate FiO2 09/11/21 08:00 94 Room Air 09/11/21 07:42 94 Room Air 09/11/21 07:24 37.1 56 20 186/98 (127) 94 Room Air 09/11/21 03:54 37.0 69 18 132/61 (84) 93 Room Air 09/10/21 23:13 37.5 71 20 145/72 (96) 94 Room Air 09/10/21 22:28 Room Air 09/10/21 19:16 37.6 69 20 180/92 (121) 95 Room Air 09/10/21 16:20 37.6 64 18 180/92 (121) 90 Room Air 09/10/21 12:45 37.5 68 18 139/85 (103) 94 Room Air I & O 09/11/21 07:00 Intake Total 3250 ml Output Total 2485 ml Balance 765 ml Capillary Refill : Less Than 3 Seconds General Appearance: No Apparent Distress, WD/WN Neck: Normal Inspection, Supple Respiratory: No Accessory Muscle Use, No Respiratory Distress Cardiovascular: Regular Rate, Rhythm, No Edema Gastrointestinal: normal bowel sounds, non tender, soft Extremity: Normal Inspection, Normal Range of Motion Neurologic/Psychiatric: Alert, Oriented x3 Skin: Normal Color, Warm/Dry, Other (Abdominal incisions are C/D/I with skin betty in place with no signs of infection. Dressings in place.) Results Lab Microbiology 09/09/21 MRSA Screen - Final, Complete MRSA not isolated Assessment/Plan Assessment/Plan Assess & Plan/Chief Complaint s/p lap hand assisted right colon resection. VSS Tolerating clear liquid diet will advance to regular incentive spiromter ambulating halls well. Ok to DC home. DOMINIQUE LARA APRN Sep 11, 2021 11:25
[2021-09-11 11:41] VITALS: BP 180/85
[2021-09-11 13:16] VITALS: BP 180/85
== END 2021-09-11 13:15 | disposition home or self-care (01) | DRG 331 ==
LOC: 4TH 05:54 → SURG 05:55 → 4TH 10:21
PROVIDERS: ADMIT Surgery; ATTEND Surgery
PROC: 0DTF0ZZ Resection of Right Large Intestine, Open Approach (ICD-10-PCS; principal; 2021-09-09 08:07)
DX: D12.0 Benign neoplasm of cecum (principal); I48.91 Unspecified atrial fibrillation; K21.00 Gastro-esophageal reflux disease with esophagitis, without bleeding; K44.9 Diaphragmatic hernia without obstruction or gangrene; F32.A Depression, unspecified; E78.00 Pure hypercholesterolemia, unspecified; I10 Essential (primary) hypertension; N40.0 Benign prostatic hyperplasia without lower urinary tract symptoms; Z95.2 Presence of prosthetic heart valve; Z90.79 Acquired absence of other genital organ(s); Z79.01 Long term (current) use of anticoagulants
CPT/HCPCS: 36415; 80048; 85027; 86850; 86900; 86901; 87081; 94664; 94760

== ENCOUNTER → 2022-05-17 | Outpatient (CLI) | payer MEDICARE, OTHER ==
[~2022-05-17] MED LIST changes: +ACHD5005 PO; +CATHETER FLUSH 10 ML SYR IV PRN; +DOCU-143 PO; +HOLD METFORMIN - RECEIVED CONTRAST 20 ML VIAL IV SCH; +IOHEXOL 350 MG/ML 100 ML (OMNIPAQUE 350) VIAL IV ONE; +NS 100 ML (IVPB) BAG IV ONE
[2022-05-17 11:05] LABS: CREATININE SERUM 1.02 MG/DL (0.60-1.30)
--- NOTE | 2022-05-17 12:59 | Diagnostic Imaging Report ---
INDICATION: Episodic mouth and tongue numbness and dysphagia. TECHNIQUE: A pre and post IV contrast-enhanced CT was performed with post contrast enhanced soft tissue neck. There are sagittal and coronal reconstructions. COMPARISON: CT head August 2014 as well as a brain MRI performed in 2018. FINDINGS: CT HEAD: Chronic periventricular white matter disease and likely small vessel sequelae show mild progression diffusely when compared to the CT of 2015. No findings of cortical edema, however. No evidence for elevated intracerebral pressures. No abnormal parenchymal or meningeal enhancement after contrast. No hemorrhage. No abnormal extra-axial fluid collection. The orbits, sinuses, and calvarium are nonacute. SOFT TISSUES OF THE NECK: The nasopharynx, oropharynx, and hypopharynx are unremarkable. The prevertebral and retropharyngeal spaces are normal. The parotid, submandibular, and thyroid glands are unremarkable. No cervical lymphadenopathy. No mass or fluid collection. There are carotid atherosclerotic vascular calcifications without an apparent significant stenosis. The visualized aortic arch is atherosclerotic but nonaneurysmal. Where seen, the pulmonary apices appear clear. There is degenerative spinal disease but no acute or suspect bony pathology. IMPRESSION: CT HEAD: Mild progression of chronic periventricular white matter small vessel disease. No hemorrhage, mass, or findings of infarct. CT NECK: No neck mass, adenopathy, foreign body, or airway compromise. Dictated by: Dictated on workstation # [id number]
== END ==
LOC: RAD 11:15
PROVIDERS: ATTEND Internal Medicine Cardiovascular Disease
DX: R13.10 Dysphagia, unspecified (principal); R90.82 White matter disease, unspecified; R20.0 Anesthesia of skin
CPT/HCPCS: 36415; 70470; 70491; 82565; 84520

== ENCOUNTER → 2022-05-20 | Outpatient (CLI) | payer MEDICARE, OTHER ==
[~2022-05-20] MED LIST changes: -CATHETER FLUSH 10 ML SYR IV PRN; -HOLD METFORMIN - RECEIVED CONTRAST 20 ML VIAL IV SCH; -IOHEXOL 350 MG/ML 100 ML (OMNIPAQUE 350) VIAL IV ONE; -NS 100 ML (IVPB) BAG IV ONE
== END ==
LOC: CARD 09:00
PROVIDERS: ATTEND Internal Medicine Cardiovascular Disease
DX: I51.7 Cardiomegaly (principal); Z95.2 Presence of prosthetic heart valve
CPT/HCPCS: 93306

== ENCOUNTER → 2022-05-31 | Outpatient (CLI) | payer MEDICARE, OTHER ==
[~2022-05-31] MED LIST changes: +REGADENOSON 0.4 MG/5 ML SYR (LEXISCAN) IV ONE
[2022-05-31] MEDS: CATHETER FLUSH 10 ML SYR IVP PRN ×2 (07:39→08:56)
[2022-05-31 08:55] VITALS: BP 177/95
--- NOTE | 2022-06-02 13:40 | STRESS TEST ---
DATE OF SERVICE: 05/31/2022 RESTING AND POST REGADENOSON TECHNETIUM-99M TETROFOSMIN SPECT CT IMAGING CLINICAL DIAGNOSIS: Chest discomfort. Baseline images were carried out after injection of 10.83 mCi of technetium-99m Tetrofosmin. This was followed by 0.4 mg regadenoson and 29.7 mCi of technetium-99m Tetrofosmin for stress imaging. The electrocardiogram showed sinus rhythm at baseline. The electrocardiogram did not change significantly with regadenoson infusion. The patient tolerated the procedure well. Review of images at rest and following stress does not indicate any distinct perfusion defects consistent with significant myocardial ischemia or infarction. Count uptake in the inferior wall appeared somewhat diminished both at rest and following regadenoson infusion. This appears to be due to diaphragmatic attenuation. Gated images show normal global left ventricular systolic function with normal regional wall motion, including the inferior (diaphragmatic) wall of the left ventricle. Left ventricular ejection fraction is calculated to be 68%. CONCLUSIONS: 1. No evidence of any significant myocardial ischemia or infarction on this study. 2. Normal regional wall motion. 3. Normal global left ventricular systolic function with a calculated ejection fraction 68%. Job ID: [id number] DocumentID: [id number] Dictated Date: 06/02/2022 09:24:56 Auto Washer Date: 06/02/2022 13:39:10 Dictated By: SARIAH CRUZ MD, MA, FACP, FACC,
== END ==
LOC: CARD 08:00
PROVIDERS: ATTEND Internal Medicine Cardiovascular Disease
DX: R07.89 Other chest pain (principal)
CPT/HCPCS: 78452; 93017; A9502

== ENCOUNTER 2023-07-27 19:20 | Outpatient (CLI) | payer MEDICARE, OTHER ==
[~2023-07-27 19:20] MED LIST changes: -REGADENOSON 0.4 MG/5 ML SYR (LEXISCAN) IV ONE
== END 2023-07-28 06:05 ==
LOC: SLEEP 19:20
PROVIDERS: ATTEND Otolaryngology Otolaryngology/Facial Plastic Surgery
DX: G47.33 Obstructive sleep apnea (adult) (pediatric) (principal); R06.83 Snoring
CPT/HCPCS: 95810